=== PATIENT | male | born 1965 | race Native Hawaiian/Other Pacific Islander ===

== ENCOUNTER 2025-06-02 13:31 | Emergency (ER) | payer MEDICAID, OTHER ==
[~2025-06-02] VITALS: Ht 180.3 cm; Wt 86.5 kg
[~2025-06-02 13:31] MED LIST: CIPR-173 PO; METR-344 PO
--- NOTE | 2025-06-02 14:20 | ED.PDOC ---
History of Present Illness HPI Comments 60M presents to the R w/ prior SHx of left knee Sx and the c/c of flu-like symptoms. Pt reports on having SOB associated w/ cough, brown phlegm, fever, wheezing and congestion all starting on Tuesday05/31/25. Denies chills, N/V/D, CP. Denies any other associated symptom's, modifiers, or recent injuries or sick contact at this time. Chief Complaint: Flu like Time Seen by MD: 14:20 Reviewed Notes: Nurses Notes, Medications, Allergies Allergies: Coded Allergies: NO KNOWN ALLERGIES (Unverified , 06/11/24) Home Meds Active Scripts Metronidazole (Flagyl) 500 Mg Tab, 1 TAB PO BID, #4 TAB Prov:МАРИЯ BLANCO MD 06/16/24 Ciprofloxacin Hcl (Cipro) 500 Mg Tab, 1 TAB PO BID, #4 TAB Prov:МАРИЯ BLANCO MD 06/16/24 Information Source: Patient Mode of Arrival: Ambulatory Severity: Moderate Timing: Days Duration: Since onset, Days Prehospital treatment: None Past Medical History PAST MEDICAL HISTORY: Denies Surgical History (Other): left knee Sx Family History Family History: Reviewed,noncontributory to illness, Unknown Social History Smoker: Non-Smoker Alcohol: Denies ETOH Use Drugs: Denies Drug Use Lives In: Home Constitutional: reports: fever; denies: chills, diaphoresis, fatigue, malaise, sweats, weakness, others EENTM: denies: blurred vision, double vision, ear bleeding, ear discharge, ear drainage, ear pain, ear ringing, eye pain, eye redness, hearing loss, mouth pain, mouth swelling, nasal discharge, nose bleeding, nose congestion, nose pain, photophobia, tearing, throat pain, throat swelling, voice changes, others Respiratory: reports: cough, shortness of breath; denies: hemoptysis, orthopnea, SOB at rest, SOB with excertion, stridor, wheezing, others Cardiovascular: denies: chest pain, dizzy spells, diaphoresis, Dyspnea on e xertion, edema, irregular heart beat, left arm pain, lightheadedness, palpitations, PND, syncope, others Gastrointestinal: denies: abdomen distended, abdominal pain, blood streaked bowels, constipated, diarrhea, dysphagia, difficulty swallowing, hematemesis, melena, nausea, poor appetite, poor fluid intake, rectal bleeding, rectal pain, vomiting, others Genitourinary: denies: burning, dysuria, flank pain, frequency, hematuria, incontinence, penile discharge, penile sore, pain, testicle pain, testicle swelling, urgency, others Neurological: denies: dizziness, fainting, headache, left sided numbness, left sided weakness, numbness, paresthesia, pre-existing deficit, right sided numbness, right sided weakness, seizure, speech problems, tingling, tremors, weakness, others Musculoskeletal: denies: back pain, gout, joint pain, joint swelling, muscle pain, muscle stiffness, neck pain, others Integumetry: denies: bruises, change in color, change in hair/nails, dryness, laceration, lesions, lumps, rash, wounds, others Allergic/Immunocompromised: denies: Difficulty Healing, Frequent Infections, Hives, Itching, others Hematologic/Lymphatic: denies: anemia, blood clots, easy bleeding, easy bruising, swollen glands, others Endocrine: denies: excessive hunger, excessive sweating, excessive thirst, excessive urination, flushing, intolerance to cold, intolerance to heat, unexplained weight gain, unexplained weight loss, others Psychiatric: denies: anxiety, bipolar disorder, depression, hopeless, panic disorder, schizophrenia, sleepless, suicidal, others All Other Systems: Reviewed and Negative Physical Exam General Appearance: Mild Distress HEENT: Normal ENT Inspection, Pharynx Normal, TMs Normal Neck: Full Range of Motion, Non-Tender, Normal, Normal Inspection Respiratory: Chest Non-Tender, Decreased Breath Sounds, No Accessory Muscle Use, Wheezing Cardiovascular: No Edema, No JVD, No Murmur, No Gallop, Normal Peripheral Pulses, Regular Rate/Rhythm Breast Exam: Deferred Gastrointestinal: No Organomegaly, Non Tender, No Pulsatile Mass, Normal Bowel Sounds, Soft Genitalia: Deferred Pelvic: Deferred Rectal: Deferred Extremities: No calf tenderness, Normal capillary refill, Normal inspection, No rmal range of motion, Non-tender, No pedal edema Musculoskeletal : Apperance: Normal Neurologic: Alert, pad cutter II-XII nml as Tested, No Motor Deficits, Normal Affect, Normal Mood, No Sensory Deficits Cerebellar Function: Normal Reflexes: Normal Skin: Dry, Normal Color, Warm Lymphatic: No Adenopathy Was a procedure done? Was a procedure done?: No Differential Dx Considerations may include: Pneumonia, bronchitis, generalized weakness X-Ray, Labs, Meds, VS Vital Signs Date Time Temp Pulse Resp B/P (MAP) Pulse Ox O2 Delivery O2 Flow Rate FiO2 06/02/25 14:43 18 94 Room Air* 0 21 06/02/25 13:33 98.2 104 18 116/91 95 98.2 Lab Test 06/02/25 14:31 Range/Units White Blood Count 6.5 4.4-10.8 10^3/uL Red Blood Count 4.95 4.5-5.90 10^6/uL Hemoglobin 16.7 13.5-17.5 g/dL Hematocrit 46.7 41.0-53.0 % Mean Corpuscular Volume 94.2 80.0-100.0 fL Mean Corpuscular Hemoglobin 33.6 H 28.0-32.0 pg Mean Corpuscular Hemoglobin Concent 35.7 32.0-36.0 g/dL Red Cell Distribution Width 12.7 11.8-14.3 % Platelet Count 219 140-450 10^3/uL Mean Platelet Volume 8.6 6.9-10.8 fL Neutrophils (%) (Auto) 50.7 37.0-80.0 % Lymphocytes (%) (Auto) 37.4 10.0-50.0 % Monocytes (%) (Auto) 9.8 0.0-12.0 % Eosinophils (%) (Auto) 1.7 0.0-7.0 % Basophils (%) (Auto) 0.4 0.0-2.0 % Neutrophils # (Auto) 3.3 1.6-8.6 10 ^3/uL Lymphocytes # (Auto) 2.4 0.4-5.4 10 ^3/uL Monocytes # (Auto) 0.6 0-1.3 10 ^3/uL Eosinophils # (Auto) 0.1 0-0.8 10 ^3/uL Basophils # (Auto) 0 0-0.2 10 ^3/uL Nucleated Red Blood Cells 0.1 % Sodium Level 141 136-145 mmol/L Potassium Level 3.7 3.5-5.1 mmol/L Chloride Level 107 98-107 mmol/L Carbon Dioxide Level 25 20-31 mmol/L Anion Gap 9 5-15 Blood Urea Nitrogen 18 9-23 mg/dL Creatinine 1.06 0.700-1.30 mg/dL Glomerular Filtration Rate Calc 81 >90 mL/min BUN/Creatinine Ratio 17.0 10.0-20.0 Serum Glucose 91 74-106 mg/dL Calcium Level 9.3 8.7-10.4 mg/dL Current Medications Medications (Trade) Dose Ordered Sig/Christina Route Start Time Stop Time Status Last Admin Ipratropium Tillson (Atrovent Medneb) 1 mg ONCE ONCE N 06/02/25 14:30 06/02/25 14:31 DC 06/02/25 14:52 Albuterol (Ventolin Medneb) 20 mg ONCE ONCE HHN 06/02/25 14:30 06/02/25 14:31 DC 06/02/25 14:52 Methylprednisolone Sodium Succinate (Solu Medrol) 125 mg ONCE ONCE IM 06/02/25 14:30 06/02/25 14:31 DC 06/02/25 14:56 The patient was given Solu-Medrol 125 mg IM The patient was given a continuous breathing treatment of albuterol and Atrovent The CBC is within normal limits The chemistry panel is within normal limits The chest x-ray shows: No sign of any abnormalities except for some peribro nchial cuffing The patient is placed on Zithromax and a Medrol Dosepak Images Reviewed?: Images reviewed and evaluated by me Time of 1ST Reevaluation: 14:50 Reevaluation 1ST: Unchanged Patient Education/Counseling: Diagnosis, Treatment, Prognosis, Need For Follow Up Family Education/Counseling: No Family Present SEPSIS Sepsis Screen Date sepsis recognized/suspect: Jun 02, 2025 Time Sepsis recognized/suspect: 1334 Recent Procedure: No On Antibiotic Therapy: No Respiratory Rate >20: No Heart Rate >90: Yes Temp<36 C (96.8 F) or >38.3 C: No SBP <90 or MAP <65 mmHG: No New Acute Mental Status Change: No Is the patient on CPAP, BIPAP,: No Physician Orders Med Neb Initial Treatment (06/02/25 14:17) Heplock Iv (06/02/25 14:17) Chest Two Views Routine (06/02/25 14:17) Rapid Influenza A&B (06/02/25 14:17) Covid19 Antigen Inna (06/02/25 ) Vital Signs Date Time Temp Pulse Resp B/P (MAP) Pulse Ox O2 Delivery O2 Flow Rate FiO2 06/02/25 14:43 18 94 Room Air* 0 21 06/02/25 13:33 98.2 104 18 116/91 95 98.2 Laboratory Tests Test 06/02/25 14:31 White Blood Count 6.5 10^3/uL (4.4-10.8) Medications Medications Dose Ordered Sig/Christina Route Start Time Stop Time Status Last Admin Dose Admin Albuterol 20 mg ONCE ONCE N 06/02/25 14:30 06/02/25 14:31 DC 06/02/25 14:52 Ipratropium Tillson 1 mg ONCE ONCE N 06/02/25 14:30 06/02/25 14:31 DC 06/02/25 14:52 Methylprednisolone Sodium Succinate 125 mg ONCE ONCE IM 06/02/25 14:30 06/02/25 14:31 DC 06/02/25 14:56 Departure 1 Departure Time of Disposition: 21:02 Impression: Primary Impression: Acute bronchitis Qualified Codes: J20.9 - Acute bronchitis, unspecified Disposition: 01 HOME / SELF CARE / HOMELESS Condition: Fair Discharged With: Self Critical Care Note Critical Care Time?: No Stability Stability form required: No Heart Score Heart Score: Heart Score Response (Comments) Value History N/A 0 EKG N/A 0 Age N/A 0 Risk Factors N/A 0 Troponin N/A 0 Total 0 I personally scribed for IRENA ANTON MD ([email or web address]) on 06/02/25 at 14:20. E lectronically submitted by Rico Saavedra ([email or web address]). IRENA ANTON MD Jun 02, 2025 14:20
[2025-06-02 14:45] LABS: Hematocrit 46.7 % (41.0-53.0); Hemoglobin 16.7 g/dL (13.5-17.5); Mean Corpuscular Hemoglobin 33.6 pg (28.0-32.0); Mean Corpuscular Volume 94.2 fL (80.0-100.0); Nucleated Red Blood Cells % 0.1 %
--- NOTE | 2025-06-02 14:45 | DVH ---
EXAM: XY CHEST TWO VIEWS ROUTINE CLINICAL HISTORY: sob TECHNIQUE: Frontal and lateral views of the chest WID: COMPARISON: None FINDINGS: Lines and tubes: None Chest: The heart size and pulmonary vasculature is within normal limits. No pleural effusion, pneumothorax, or consolidation. The osseous structures are grossly intact. Mild multilevel thoracic spondylosis. IMPRESSION: 1. No acute cardiopulmonary abnormality.
[2025-06-02 14:49] LABS: Potassium 3.7 mmol/L (3.5-5.1); Sodium 141 mmol/L (136-145)
[2025-06-02 14:50] LABS: Anion Gap 9 (5-15); Calcium 9.3 mg/dL (8.7-10.4); Carbon Dioxide 25 mmol/L (20-31)
[2025-06-02] MEDS: ALBUTEROL SULF 2.5 MG/0.5ML(0.5%) NEB SOLN HHN ONE (14:52)
[2025-06-02] MEDS: IPRATROPIUM BROM 0.5 MG/2.5ML INH SOL HHN ONE (14:52)
[2025-06-02 14:55] LABS: BUN/Creatinine Ratio 17.0 (10.0-20.0); Blood Urea Nitrogen 18 mg/dL (9-23); Chloride 107 mmol/L (98-107); Glucose 91 mg/dL (74-106)
[2025-06-02] MEDS: methylPREDNISolone SOD SUCC 125 MG/2 ML VL IM ONE (14:56)
[2025-06-02] MEDS ORDERED: AZIT500T PO (21:05)
[2025-06-02] MEDS ORDERED: METH4PAK PO (21:05)
[2025-06-02] MEDS ORDERED: ALBUAER3 IN (21:05)
[2025-06-02 23:35] LABS: COVID19 ANTIGEN SOFIA FIA NEGATIVE (NEGATIVE)
[2025-06-03 03:34] VITALS: BP 124/86; PULSE 104; RESP 20; TEMP 98.4
[2025-06-03 03:40] VITALS: O2SAT 96
== END 2025-06-03 03:40 | disposition home or self-care (01) ==
LOC: ER 13:31
DX: J20.9 Acute bronchitis, unspecified (principal); Z79.899 Other long term (current) drug therapy; Z20.822 Contact with and (suspected) exposure to COVID-19
CPT/HCPCS: 36415; 71046; 80048; 85025; 87426; 87804; 94644; 96372; 99285; J2919